=== PATIENT | female | born 1980 | race Caucasian/White ===

== ENCOUNTER 2020-06-16 19:26 | Emergency (ER) | payer OTHER ==
[2020-06-17 00:31] LABS: HEMOGLOBIN 11.7 gm/dl (12.3-15.3); RED BLOOD COUNT 4.06 M/UL (4.00-5.10); WHITE BLOOD COUNT 10.2 K/UL (4.5-11.0)
[2020-06-17 00:53] LABS: BUN/CREATININE RATIO 16 (0-10)
[2020-06-17] MEDS ORDERED: REGLAN10 MG PO (01:56)
[2020-06-17] MEDS ORDERED: BENTYL 20MG TAB20 MG PO (01:56)
== END 2020-06-17 02:11 | disposition home or self-care (01) ==
LOC: ER1 19:26
PROVIDERS: Physician Assistant
DX: O20.0 Threatened abortion (principal); Z87.19 Personal history of other diseases of the digestive system; Z3A.16 16 weeks gestation of pregnancy
CPT/HCPCS: 80053; 81001; 83690; 85025; 86900; 86901; 87086; 99283; J7030